=== PATIENT | female | born 1995 | race Caucasian/White ===

== ENCOUNTER → 2018-07-14 | Outpatient (CLI) | payer BC ==
--- NOTE | 2018-07-14 11:03 | RADIOLOGY IMAGING REPORT ---
FACILITY: [facility] - [place] PATIENT NAME: Reuben Garcia : 1995 MR: [id number] V: [id number] EXAM DATE: ORDERING PHYSICIAN: JEANNINE MCGUIRE TECHNOLOGIST: Location: [facility] [place] Patient: Reuben Garcia : 1995 Visit/Account:[id number] Date of Sevice: 07/14/2018 EXAMINATION: Thyroid ultrasound 07/14/2018 10:22 AM History: Abnormal thyroid function test. Jerica's. COMPARISON STUDIES: none FINDINGS: Thyroid size: Right lobe 5.0 x 1.5 x 1.4 cm Left lobe 4.8 x 1.5 x 1.7 cm Isthmus 5 mm Thyroid nodules: Right lobe - diffusely heterogeneous parenchyma. No discrete solid or cystic focus. Left lobe - diffusely heterogeneous parenchyma. No discrete solid or cystic focus. Isthmus - mildly heterogeneous echogenicity. No discrete solid or cystic lesion. Thyroid vascularity: Unremarkable IMPRESSION: Diffusely heterogeneous thyroid without discrete solid or cystic abnormality. Heterogeneity may refl ect a chronic thyroiditis such as the given history of Jerica's. REFERENCE: 2015 [place] [employer] Management Guidelines for Adult Patients with Thyroid Nodules and D ifferentiated Thyroid Cancer: The [place] [employer] Guidelines Task Force on Thyroid Nodul es and Differentiated Thyroid Cancer. SONOGRAPHIC PATTERNS: * Benign: Purely cystic nodules (no solid component); estimated risk of malignancy <1 percent; no bi opsy recommended. * Very Low Suspicion: Spongiform or partially cystic nodules without any of the sonographic features described in low, intermediate, or high suspicion patterns; estimated risk of malignancy <3 percent; consider FNA at > 2 cm (Observation without FNA is also a reasonable option). * Low Suspicion: Isoechoic or hyperechoic solid nodule, or partially cystic nodule with eccentric so lid areas, without microcalcification, irregular margin or ETE (extra-thyroidal extension), or taller than wide shape; estimated risk of malignancy 5-10 percent; recommend FNA at >1.5 cm. * Intermediate Suspicion: Hypoechoic solid nodule with smooth margins without microcalcifications, E TE (extra-thyroidal extension), or taller than wide shape; estimated risk of malignancy 10-20 percent ; recommend FNA at > 1 cm. * High Suspicion: Solid hypoechoic nodule or solid hypoechoic component of a partially cystic nodule with one or more of the following features: irregular margins (infiltrative, microlobulated), microc alcifications, taller than wide shape, rim calcifications with small extrusive soft tissue component, evidence of ETE (extra-thyroidal extension); estimated risk of malignancy >70-90 percent; recommend FNA at > 1 cm. NOTES: * Although a sonographically suspicious subcentimeter thyroid nodule without evidence of extrathyroi michael extension or sonographically suspicious lymph nodes may be observed with close sonographic follow -up rather than pursuing immediate FNA, patient age and preference may modify decision-making. A > 50% interval increase in nodule volume and/or development of new suspicious sonographic features are felt to be a valid reasons for potential re-aspiration of a nodule previously shown to have benig n FNA cytology. Report Dictated By: Julio Bai MD at 07/14/2018 10:58 AM Report E-Signed By: Julio Bai MD at 07/14/2018 11:00 AM MARKON:SALENA
== END ==
LOC: US 10:05
PROVIDERS: ATTEND Nurse Practitioner Family
DX: E06.3 Autoimmune thyroiditis (principal)
CPT/HCPCS: 76536

== ENCOUNTER → 2018-10-27 | Outpatient (CLI) | payer BC ==
[~2018-10-27] MED LIST: ALBU8.5H IH; EPIN0.3P15 IM; LEVO75TA73 PO; PREN-148 PO; SUMA50TA34 PO
[2018-10-27 11:14] LABS: PLATELET COUNT, AUTOMATED 373 K/uL (150-450)
== END ==
LOC: LAB 08:46
PROVIDERS: ATTEND Obstetrics & Gynecology
DX: Z34.91 Encounter for supervision of normal pregnancy, unspecified, first trimester (principal)
CPT/HCPCS: 36415; 81001; 85025; 86592; 86703; 86762; 86850; 86900; 86901; 87088; 87340

== ENCOUNTER → 2018-11-15 | Outpatient (CLI) | payer BC ==
[~2018-11-15] MED LIST changes: +ASPI-1471 PO; +LEVO-3 PO
== END ==
LOC: LAB 13:30
PROVIDERS: ATTEND Obstetrics & Gynecology
DX: Z34.91 Encounter for supervision of normal pregnancy, unspecified, first trimester (principal)
CPT/HCPCS: 87491; 87591

== ENCOUNTER → 2019-01-05 | Outpatient (CLI) | payer BC ==
[~2019-01-05] MED LIST changes: +ONDA4TAB97 PO; +PROM12.556 PO
== END ==
LOC: LAB 09:44
PROVIDERS: ATTEND Obstetrics & Gynecology
DX: O09.90 Supervision of high risk pregnancy, unspecified, unspecified trimester (principal); E03.9 Hypothyroidism, unspecified
CPT/HCPCS: 36415; 84443

== ENCOUNTER → 2019-01-30 | Outpatient (CLI) | payer BC | LOC: LAB 13:42 | PROVIDERS: ATTEND Obstetrics & Gynecology | DX: R39.15 Urgency of urination (principal) | CPT/HCPCS: 87088 ==

== ENCOUNTER → 2019-03-30 | Outpatient (CLI) | payer BC ==
[2019-03-26 18:37] VITALS: BMI 28.9
[~2019-03-30] MED LIST changes: +DIPH0.5S2 IM; +NIFE10CA38 PO; -PROM12.556 PO; +PROM12.557 PO; +RHO(150015 IM
[2019-03-30 10:21] LABS: PLATELET COUNT, AUTOMATED 264 K/uL (150-450)
== END ==
LOC: LAB 08:47
PROVIDERS: ATTEND Obstetrics & Gynecology
DX: O30.032 Twin pregnancy, monochorionic/diamniotic, second trimester (principal); O99.280 Endocrine, nutritional and metabolic diseases complicating pregnancy, unspecified trimester; E03.9 Hypothyroidism, unspecified
CPT/HCPCS: 36415; 82950; 84443; 85025